=== PATIENT | female | born 1955 | race Caucasian/White ===

== ENCOUNTER 2019-08-02 10:35 | Observation (INO) ==
[2019-08-02] MEDS ORDERED: ASPIRIN PO ONE (10:45)
[2019-08-02 10:58] LABS: BASO# 0.08 X1000 (0.0-0.2); EOS# 0.95 X1000 (0.0-0.7); EOS% 11.5 % (0.0-10.0); HEMATOCRIT 40.1 % (37.0-47.0); HEMOGLOBIN 12.9 g/dL (12.0-16.0); IMM GRAN# 0.01 X1000 (0.0-0.04); IMM GRAN% 0.1 % (0.0-0.5); LYMPH# 3.25 X1000 (1.2-3.4); LYMPH% 39.3 % (20.5-51.1); MCH 29.7 PG (27-31); MCHC 32.2 g/dL (33-37); MCV 92.4 FL (81-99); MONO# 0.75 X1000 (0.11-0.59); MONO% 9.1 % (1.7-9.3); MPV 10.5 FL (7.4-10.4); NEUT# 3.23 X1000 (1.4-6.5); PLT 250 X1000 (130-400); RBC 4.34 XMIL (4.2-5.4); RDW 12.9 % (11.5-14.5); WBC 8.27 X1000 (4.8-10.8)
[2019-08-02 11:16] LABS: AGAP 14; ALBUMIN 4.8 g/dL (3.5-5.0); ALKALINE PHOSPHATASE 123 U/L (32-104); BUN 10 mg/dL (8-22); CALCIUM 9.6 mg/dL (8.8-10.2); CHLORIDE 102 mmol/L (98-107); COSMO 280; CREATININE 0.6 mg/dL (0.5-0.9); ESTIMATED GFR > 60; GLUCOSE 97 mg/dL (70-104); GOT 18 U/L (10-30); GPT 20 U/L (10-36); SODIUM 141 mmol/L (136-145); TCO2 25 mmol/L (25-35); TOTAL PROTEIN 7.8 g/dL (6.3-8.3)
--- NOTE | 2019-08-02 11:16 | Diag Imaging Result Doc PS360 ---
CHEST-2 VIEWS - 08/02/2019 INDICATION: left sided chest pain COMPARISON: 05/07/2015 FINDINGS: The lungs are normally expanded and clear. Heart size and mediastinal contours are normal. No pneumothorax or pleural effusion. IMPRESSION: Negative exam. Electronically signed by Wilfrid Garcia 08/02/2019 11:13 AM
[2019-08-02 12:11] LABS: URINE SOURCE CLEAN CATCH
[2019-08-02 12:12] LABS: BILIRUBIN URINE NEGATIVE (NEGATIVE); BLOOD URINE NEGATIVE (NEGATIVE); COLOR STRAW; GLUCOSE URINE NEGATIVE (NEGATIVE); KETONE URINE NEGATIVE (NEGATIVE); LEUKOCYTES URINE NEGATIVE (NEGATIVE); NITRITE URINE NEGATIVE (NEGATIVE); PROTEIN URINE NEGATIVE (NEGATIVE); SP GRAVITY URINE 1.007; TURBIDITY URINE CLEAR (CLEAR); UR EPITHELIAL CELLS <10 /HPF (<10); URINE BACTERIA NEGATIVE /HPF; URINE RBC <10 /HPF (<10); URINE WBC <10 /HPF (<10); UROBILINOGEN URINE NORMAL (NORMAL)
[2019-08-02 12:32] LABS: INFLUENZA A NEGATIVE (NEGATIVE); INFLUENZA B NEGATIVE (NEGATIVE)
[2019-08-02] MEDS ORDERED: COZAAR PO ONE (13:13)
[2019-08-02] MEDS ORDERED: TYLENOL PO PRN (14:32)
[2019-08-02] MEDS ORDERED: ZOFRAN IV PRN (14:32)
[2019-08-02] MEDS ORDERED: APRESOLINE IV PRN (14:33)
--- NOTE | 2019-08-02 16:41 | PROVIDER DOCUMENTATION ---
This chart was entered by Phyllis Watts Scribe, acting as scribe for Román Julio MD. HPI-Chest Pain - General Chief Complaint: Chest Pain Stated Complaint: ARM / NECK PAIN Time Seen by Provider: 08/02/19 10:44 Source: patient, family (daughter) Allergies/Adverse Reactions: Patient Allergies Allergy/AdvReac Type Severity Reaction Status Date / Time No Known Allergies Allergy Verified 05/07/15 14:44 Home Medications: Home Medication List Medication Instructions Recorded Confirmed Last Taken Type Omeprazole [Prilosec] 40 mg PO PRN PRN 05/07/15 05/07/15 Unknown History Aspirin 81 mg PO DAILY #30 chewtab 05/08/15 Unknown Rx LISINOpril [Prinivil] 10 mg PO DAILY #30 tablet 05/08/15 Unknown Rx - History of Present Illness-CP Nature of Presenting Problem: 64 yowf presents to the ed with acute onset yesterday chest pain radiating into left and SEALS. pt sts pain has been intermittent and is worse with deep breathing. pt on exam is nontoxic in appearance and in no distress . nON-SMOKER, OCC BEER. Location: reports: other (left anterior) Chest Pain Radiation: reports: arms (left) Quality of Pain: reports: sharp Severity in ED: moderate Onset/Duration: 24 hours ago Timing: still present, intermittent Context/Activities at Onset: reports: light activity Modifying Factors: worse with: breathing (deep) Associated Symptoms: denies: abdominal pain, back pain, dizziness, nausea, shortness of breath, vomiting Nitro Today/Relief: no nitro taken today Aspirin Treatment Today: 325 mg x 1, provided by ED Similar Symptoms Previously?: Yes (05/07/15 seen for CP) Recently Seen Here or By Another Healthcare Provider: No Review of Systems - Adult - REVIEW OF SYSTEMS - ADULT Constitutional: denies: chills, fever Eyes: reports: no symptoms reported Ears, Nose, Mouth & Throat: reports: no symptoms reported Cardiovascular: reports: see HPI, chest pain. denies: edema, palpitations, syncope Respiratory: reports: no symptoms reported Gastrointestinal: denies: abdominal pain, diarrhea, nausea, vomiting Genitourinary: reports: no symptoms reported Musculoskeletal: reports: see HPI, other (LUE) Integumentary: reports: no symptoms reported Neurological: reports: see HPI, headache/migraines. denies: ataxia, dizziness/vertigo, slurred speech, syncope, tremors Psychiatric: reports: no symptoms reported Endocrine: reports: no symptoms reported Hematologic/Lymphatic: reports: no symptoms reported Allergic/Immunologic: reports: no symptoms reported All Other Systems: Reviewed and Negative Past History - Adult - PAST MEDICAL HISTORY-ADULT Review of Records: reports: Nursing Assessment Review, Medications Reviewed, So cial history reviewed & non-contributory. Major Childhood Illnesses: reports: denies history Cardiovascular: reports: HTN, hyperlipidemia Respiratory: reports: denies history Gastrointestinal: reports: denies history Obstetrical/Gynecological: reports: denies history Genitourinary: reports: denies history Musculoskeletal: reports: denies history Hand Dominance: Right Handed Neurological: reports: denies history Psychiatric: reports: denies history Endocrine/Immune: reports: anemia Other Conditions: reports: denies history - PRIOR SURGERIES/PROCEDURES Surgical/Procedure History: reports: reviewed, not pertinent - IMMUNIZATION STATUS Childhood Immunizations: See Nurse Assessment Flu Vaccine: See Nurse Assessment - FAMILY HISTORY Family History: reviewed, not pertinent - SOCIAL HISTORY Smoking: denies Substance Use: alcohol Alcohol Use Frequency: occasionally Number of drinks per typical drinking period:: 2 drinks Living Situation: family Physical Exam-General - PHYSICAL EXAM-ADULT Initial Vital Signs Reviewed: Yes - CONSTITUTIONAL General Appearance: appears well, alert, no apparent distress (pt is nontoxic in appearance) - EYES Eyes: PERRL/EOMI, pink conjunctivae - HEAD, EARS, NOSE, MOUTH & THROAT HENMT: moist mucous membranes, normal ENT inspection - NECK Neck: non-tender, full range of motion, supple, normal inspection - RESPIRATORY Respiratory: lungs clear, normal breath sounds, pain on inspiration (pleuratic pain). negative: respiratory distress - CARDIOVASCULAR Cardiovascular: normal peripheral pulses, regular rate, rhythm - CHEST (BREASTS) Chest/Breast: tenderness (with palpation) - GASTROINTESTINAL (ABDOMEN) Abdominal Exam: normal bowel sounds, non tender, soft - GENITOURINARY Female Genitalia/Pelvic Exam: deferred Rectal Exam: deferred Hemoccult Exam: deferred - LYMPHATIC Lymphatic: no adenopathy - MUSCULOSKELETAL Back Exam: no CVA tenderness, no vertebral tenderness Extremity: normal range of motion, non-tender, normal gait, normal inspection - SKIN Integumentary: normal color, normal turgor, warm/dry - NEUROLOGIC Neurologic: grossly normal - PSYCHIATRIC Psych/Mental Status: normal mood/affect, normal thought content, normal thought process, oriented x 3 - HEART Score HEART Score: History: Slightly Suspicious HEART Score: ECG: Normal HEART Score: Age: 45-65 Years HEART Score: Risk Factors for Atherosclerotic Disease: 1 or 2 Risk Factors HEART Score: Troponin: < or = Normal Limit Total HEART Score:: 2 Progress - PLAN OF CARE/RESULTS Progress/Plan/Lab Results: Vital Signs - 8 hr 08/02/19 10:40 Temperature 97.9 F Pulse Rate 76 Respiratory Rate 20 Blood Pressure 180/84 O2 Sat by Pulse Oximetry 100 Laboratory Results - last 24 hr 08/02/19 08/02/19 08/02/19 10:45 10:45 10:45 WBC 8.27 RBC 4.34 Hgb 12.9 Hct 40.1 MCV 92.4 MCH 29.7 MCHC 32.2 L RDW Std Deviation 12.9 Plt Count 250 MPV 10.5 H Immature Gran % (Auto) 0.1 Neut % (Auto) 39.0 L Lymph % (Auto) 39.3 Murray % (Auto) 9.1 Eos % (Auto) 11.5 H Baso % (Auto) 1.0 H Immature Gran # (Auto) 0.01 Neut # (Auto) 3.23 Lymph # (Auto) 3.25 Murray # (Auto) 0.75 H Eos # (Auto) 0.95 H Baso # (Auto) 0.08 D-Dimer, Quantitative 0.40 Sodium Potassium Chloride Carbon Dioxide Anion Gap BUN Creatinine Estimated GFR/1.73 m2 BUN/Creatinine Ratio Glucose Calculated Osmolality Calcium Total Bilirubin AST ALT Alkaline Phosphatase Creatine Kinase 64 Troponin T High Sens Total Protein Albumin Globulin Albumin/Globulin Ratio Urine Source Urine Color Urine Turbidity Urine pH Ur Specific [place] Urine Protein Ur Glucose (Stick) Ur Ketones (Stick) Urine Blood Urine Nitrite Urine Bilirubin Urobilinogen Dipstick Urine Leukocytes Urine WBC (Auto) Urine RBC (Auto) U Epithel Cells (Auto) Urine Bacteria (Auto) Influenza A (Rapid) Influenza B (Rapid) 08/02/19 08/02/19 08/02/19 10:45 10:45 12:08 WBC RBC Hgb Hct MCV MCH MCHC RDW Std Deviation Plt Count MPV Immature Gran % (Auto) Neut % (Auto) Lymph % (Auto) [place] % (Auto) Eos % (Auto) Baso % (Auto) Immature Gran # (Auto) Neut # (Auto) Lymph # (Auto) Murray # (Auto) Eos # (Auto) Baso # (Auto) D-Dimer, Quantitative Sodium 141 Potassium 4.0 Chloride 102 Carbon Dioxide 25 Anion Gap 14 BUN 10 Creatinine 0.6 Estimated GFR/1.73 m2 > 60 BUN/Creatinine Ratio 17 Glucose 97 Calculated Osmolality 280 Calcium 9.6 Total Bilirubin 0.20 AST 18 ALT 20 Alkaline Phosphatase 123 H Creatine Kinase Troponin T High Sens < 6 Total Protein 7.8 Albumin 4.8 Globulin 3.0 Albumin/Globulin Ratio 2.0 Urine Source Urine Color Urine Turbidity Urine pH Ur Specific [place] Urine Protein Ur Glucose (Stick) Ur Ketones (Stick) Urine Blood Urine Nitrite Urine Bilirubin Urobilinogen Dipstick Urine Leukocytes Urine WBC (Auto) Urine RBC (Auto) U Epithel Cells (Auto) Urine Bacteria (Auto) Influenza A (Rapid) NEGATIVE Influenza B (Rapid) NEGATIVE 08/02/19 12:09 WBC RBC Hgb Hct MCV MCH MCHC RDW Std Deviation Plt Count MPV Immature Gran % (Auto) Neut % (Auto) Lymph % (Auto) [place] % (Auto) Eos % (Auto) Baso % (Auto) Immature Gran # (Auto) Neut # (Auto) Lymph # (Auto) [place] # (Auto) Eos # (Auto) Baso # (Auto) D-Dimer, Quantitative Sodium Potassium Chloride Carbon Dioxide Anion Gap BUN Creatinine Estimated GFR/1.73 m2 BUN/Creatinine Ratio Glucose Calculated Osmolality Calcium Total Bilirubin AST ALT Alkaline Phosphatase Creatine Kinase Troponin T High Sens Total Protein Albumin Globulin Albumin/Globulin Ratio Urine Source CLEAN CATCH Urine Color STRAW Urine Turbidity CLEAR Urine pH 7.0 Ur Specific [place] 1.007 Urine Protein NEGATIVE Ur Glucose (Stick) NEGATIVE Ur Ketones (Stick) NEGATIVE Urine Blood NEGATIVE Urine Nitrite NEGATIVE Urine Bilirubin NEGATIVE Urobilinogen Dipstick NORMAL Urine Leukocytes NEGATIVE Urine WBC (Auto) <10 Urine RBC (Auto) <10 U Epithel Cells (Auto) <10 Urine Bacteria (Auto) NEGATIVE Influenza A (Rapid) Influenza B (Rapid) Orders Category Date Time Status CHEST-2 VIEWS [RAD] Stat Exams 08/02/19 10:44 Completed CBC WITH DIFF [HEME] Stat Lab 08/02/19 10:45 Completed CK PROFILE [SP CHEM] Stat Lab 08/02/19 10:45 Completed COMPREHENSIVE METABOLIC PANEL [CHEM] Stat Lab 08/02/19 10:45 Completed D-DIMER [COAG] Stat Lab 08/02/19 10:[address] Stat Lab 08/02/19 12:08 Completed TROPONIN T HIGH SENSITIVITY Stat Lab 08/02/19 10:45 Completed TROPONIN T HIGH SENSITIVITY Stat Lab 08/02/19 13:08 Received UA [URINALYSIS W/POSS RFLX CULT] [URINALYSIS] Stat Lab 08/02/19 12:09 Completed Aspirin Med 08/02/19 10:45 Discontinued 325 mg PO NOW ONE Losartan [Cozaar] Med 08/02/19 13:13 Discontinued 50 mg PO NOW ONE EKG [EKG] Stat Ther 08/02/19 10:44 Ordered pt just informed the dr that she has been out of HTN medications for 2 days Result Diagrams: 08/02/19 10:45 08/02/19 10:45 - REASSESSMENT Reassessment #1 Time Reassessed: 12:16 Status: improving Reassessment #2 Time Reassessed: 13:18 Status: improving (OCC FLEETING CHEST PAIN) - EKG 1 Time of EKG reading by physician:: 10:47 EKG Read and Signed by:: Román Julio EKG Interpretation (*Must complete 3 of following elements*): Abnormal Rate: 80 Rhythm: nsr [place]: normal QRS: normal MA Interval: normal ST Wave: normal Comments: septal infarct, age undetermined - XRAY 1 XRAY: Bilateral XRAY Study: Chest Impression: See EMR Report ( CHEST-2 VIEWS - 08/02/2019 INDICATION: left sided chest pain COMPARISON: 05/07/2015 FINDINGS: The lungs are normally expanded and clear. Heart size and mediastinal contours are normal. No pneumothorax or pleural effusion. IMPRESSION: Negative exam. Electronically signed by Wilfrid Garcia 08/02/2019 11:13 AM 08/02/19 1113 Interpreting Physician: Wilfrid Garcia MD Dictated Date/Time: 08/02/19 1113 cc: Román Julio MD; Camacho Rodriguez MD) - CONSULTS/PCP/HOSPITALIST Notification #1 *Consult/PCP/Hospitalist*: hospitalist dr damian Time Discussed: 12:45 Consult Disposition: Will see in ED, Admit Departure - Departure Date of Disposition Decision: 08/02/19 Time of Disposition Decision: 12:45 DIAGNOSIS: Nonspecific chest pain Disposition: ADMITTED INPATIENT 09 Certified Medical Emergency: Emergent Condition: Stable Referrals and Follow-Ups: Camacho Rodriguez MD [Primary Care Provider] - - Critical Care Note This patient required my direct & personal management of CC.: No Attestation - Physician/ YOGESH Attestation Patient care was provided by Advanced Practice Provider:: No The physician spent face to face time with patient:: Yes Advanced Practice Provider documentation review:: Supervising physician onsite and consulted in the evaluation and care of this patient. The physician did have a face to face encounter with the patient. This chart was documented by the indicated scribe, (Phyllis Watts Scribe) and accurately reflects the services I performed and decisions made by me, Román Julio MD, as attested by the provider's signature.
--- NOTE | 2019-08-02 17:42 | EKG Report ---
Test Performed on : 08/02/2019 10:47:50 AM Test Reason : left chest pain Blood Pressure : / mmHG Vent. Rate : 080 BPM Atrial Rate : 080 BPM P-R Int : 148 ms QRS Dur : 074 ms QT Int : 380 ms P-R-T Axes : 065 041 055 degrees QTc Int : 438 ms Normal sinus rhythm. Septal infarct , age undetermined Abnormal ECG No previous ECGs available Unconfirmed Result
[2019-08-02] MEDS: CARAFATE PO SCH (18:18)
[2019-08-02] MEDS: PROTONIX PO SCH (20:50)
--- NOTE | 2019-08-03 04:08 | HISTORY AND PHYSICAL ---
CHIEF COMPLAINT: Chest pain. HISTORY OF PRESENT ILLNESS: The patient is a 64-year-old female who presented to the emergency department with chest pain radiating to her left into her mid back. States she has also started having more burping, belching, more nausea. Does have a history of hiatal hernia. Is unsure if the pain worsens with breathing, or movement or positioning. No radiation down her arm. ALLERGIES: No known drug allergies. MEDICATIONS: Omeprazole 40, aspirin 81, lisinopril 10. REVIEW OF SYSTEMS: As noted above. Complains of some hurting in her left shoulder and in her mid back. Increased burping, belching, increased nausea. Denies hematemesis, hematochezia, melena, hemoptysis. Denies previous chest pains. Denies any palpitations. Denies dysuria, urinary frequency, urgency. Denies diarrhea, constipation, melena, hematochezia. FAMILY HISTORY: Noncontributory. SOCIAL HISTORY: Patient does drink alcohol occasionally, typically no more than 2 drinks. Denies any other illicit substance use. Denies smoking. PHYSICAL EXAMINATION: VITAL SIGNS: Reviewed. Temperature 97.9 degrees, pulse 76, respiratory 20, BP 180/84, saturating 100% on room air. GENERAL: Patient is awake, alert, very pleasant. She is in no respiratory distress. HEENT: Normocephalic. NECK: Supple. CARDIOVASCULAR: Regular rate. CHEST: Clear. ABDOMEN: Soft, nondistended. EXTREMITIES: Moves all extremities. NEUROLOGIC: No changes. ASSESSMENT: 1. Hypertension. 2. High cholesterol. 3. Chest pain, most likely gastrointestinal in cause. 4. Hiatal hernia. 5. Chronic reflux. PLAN: We are going to admit her to the hospital, rule out CT. Attempt Carafate and PPI for her GI, chest pain, and we will follow. Dictation in the patient is a. cc: Evans Gutierrez MD
[2019-08-03 05:57] LABS: AGAP 13; ALBUMIN 4.2 g/dL (3.5-5.0); ALKALINE PHOSPHATASE 111 U/L (32-104); BUN 13 mg/dL (8-22); CALCIUM 9.6 mg/dL (8.8-10.2); CHLORIDE 105 mmol/L (98-107); COSMO 284; CREATININE 0.7 mg/dL (0.5-0.9); ESTIMATED GFR > 60; GLUCOSE 112 mg/dL (70-104); GOT 19 U/L (10-30); GPT 21 U/L (10-36); POTASSIUM 4.4 mmol/L (3.5-5.1); SODIUM 142 mmol/L (136-145); TCO2 24 mmol/L (25-35); TOTAL PROTEIN 7.2 g/dL (6.3-8.3)
[2019-08-03 06:00] LABS: CHOLESTEROL 180 mg/dL (0-200); HDL 45 mg/dL (45-65); LDL 114 mg/dL; TRIGLYCERIDES 105 mg/dL (35-135); VLDL 21 mg/dL
[2019-08-03 06:44] LABS: HEMATOCRIT 39.4 % (37.0-47.0); HEMOGLOBIN 12.4 g/dL (12.0-16.0); MCH 29.1 PG (27-31); MCHC 31.5 g/dL (33-37); MCV 92.5 FL (81-99); RBC 4.26 XMIL (4.2-5.4); WBC 6.61 X1000 (4.8-10.8)
[2019-08-03 08:50] VITALS: BP 105/50
[2019-08-03] MEDS: CARAFATE PO SCH (09:55)
[2019-08-03] MEDS: PROTONIX PO SCH (09:55)
--- NOTE | 2019-08-04 02:18 | DISCHARGE SUMMARY ---
ADMISSION DATE: 08/02/2019 DISCHARGE DATE: 08/03/2019 DISCHARGE DIAGNOSES: 1. Hypertension. 2. High cholesterol. 3. Chest pain, resolved. 4. Hiatal hernia. 5. Chronic reflux. CONSULTATIONS: None. PROCEDURES: None. BRIEF HOSPITAL COURSE: The patient is a 64-year-old female who presented to the hospital with chest pain that ultimately starting radiating through to her back with some nausea. She was admitted, placed on rule out protocol. Thankfully, her enzymes were negative. On discharge, she is awake, alert. Carafate was helping. All of her symptoms have resolved and therefore she will be discharged home. DISPOSITION: Patient will be discharged home. Discussed with her that she has follow up outpatient with treatment facility of choice. She will continue Carafate 3 times daily as well as PPI twice daily for the next 2 weeks. Discussed reflux precautions. cc: Evans Gutierrez MD
== END 2019-08-03 11:30 | disposition home or self-care (01) ==
LOC: P.ED 10:35 → P.MEDSURG 10:35
PROVIDERS: ATTEND Family Medicine